=== PATIENT | female | born 1970 | race Caucasian/White ===

== ENCOUNTER 2021-04-14 11:49 | Emergency (ER) | payer OTHER ==
--- OUTSIDE RECORDS SUMMARY | 2021-04-14 11:52 | XMS REPORT | Continuity of Care Document ---
:1970 Author Organization [facility] t Address [address] [place] [address] Care Team Providers Name Role Phone Sammi Carrera Primary Care Physician ANDREA Attending Clinician Unavailable Sabine CLEMONS Attending Clinician Unavailable Ean Potter Attending Clinician Unavailable EVERTON, A Attending Clinician Unavailable Lab, Fam Pob I Attending Clinician Unavailable Ean Barriga Attending Clinician Physician, Primary or Family Admitting Clinician Unavailabl e Payers Payer Name Policy Type Policy Number Effective Date Expiration Date S ource [employer] CHOICE POS [id number] 2000 00:00:00 II CIG[employer] II [id number] 2019 00:00:00 Problems Condition Condition Condition Status Onset Resolution Last Treating Co mments Source Name Details Category Date Date Treatment Clinician Date Acute Acute Disease Active 2020-04 [facility] medial medial 1-11 [facility] meniscus meniscus 00:00: tear of tear of 00 right knee right knee Acute Acute Disease Active 2020-04 [facility] medial medial 1-11 [facility] meniscus meniscus 00:00: tear of tear of 00 left knee left knee Allergies, Adverse Reactions, Alerts Allergy Allergy Status Severity Reaction(s) Onset Inactive Treating Comm ents Source Name Type Date Date Clinician Penicill Allergy Active Itching 2013-04 [facility] ins to 0-13 Health substanc 00:00: e 00 NO KNOWN Drug Active [facility] ALLERGIE Class ity of [facility] Social History Social Habit Start Date Stop Date Quantity Comments Source Exposure to Not sure [facility] SARS-CoV-2 (event) Alcohol intake 2021-04-01 2021-04-01 Ex-drinker [facility] 00:00:00 00:00:00 (finding) Tobacco use and 2021-03-04 2021-03-04 Smokeless tobacco [facility] exposure 00:00:00 00:00:00 non-user Sex Assigned At [birth year] [facility] 00:00:[facility] 00:00:00 Smoking Status Start Date Stop Date Source Unknown if ever smoked [facility] Never smoked tobacco [facility] Medications Ordered Filled Start Stop Current Ordering Indication Dosage Frequency Signature Comments Components Source Medication Medication Date Date Medication? Clinician (SIG) Name Name traMADol 2020-04 Yes [id number] 50mg Q6H Take 1 [facility] (Ultram) 50 2-19 [id number] tablet (50 Health MG tablet 00:00: mg total) 00 by mouth every 6 (six) hours if needed for severe pain. traMADol 2020-04 Yes [id number] 50mg Q6H Take 1 [facility] (Ultram) 50 2-19 [id number] tablet (50 Health MG tablet 00:00: mg total) 00 by mouth every 6 (six) hours if needed for severe pain. Diclofenac 2020-04 Yes [id number] Apply [facility] Sodium 2-03 [id number] topically Health (Voltaren) 00:00: 4 (four) 1 % 00 times a external day if gel needed (pain). Do not apply more than 8 grams daily. Diclofenac 2020-04 Yes [id number] Apply [facility] Sodium 2-03 [id number] topically Health (Voltaren) 00:00: 4 (four) 1 % 00 times a external day if gel needed (pain). Do not apply more than 8 grams daily. meloxicam 2020-04- Yes [id number] 15mg QD Take 1 [facility] (Mobic) 15 05-27- [id number] tablet (15 Health MG tablet 00:00: 05:59 mg total) 00 :00 by mouth 1 (one) time each day. meloxicam 2020-04- Yes [id number] 15mg QD Take 1 [facility] (Mobic) 15 05-27- [id number] tablet (15 Health MG tablet 00:00: 05:59 mg total) 00 :00 by mouth 1 (one) time each day. Diclofenac 2020-04 Yes [id number] 1g Q.5D Apply 1 g [facility] Sodium 1.5 1-16 [id number] topically He alth % solution 00:00: 2 (two) 00 times a day. Diclofenac 2020-04 Yes [id number] 1g Q.5D Apply 1 g [facility] Sodium 1.5 1-16 [id number] topically He alth % solution 00:00: 2 (two) 00 times a day. Diclofenac 2020-04 Yes [id number] 1g Q.5D Apply 1 g [facility] Sodium 1.5 1-16 [id number] topically He alth % solution 00:00: 2 (two) 00 times a day. Diclofenac 2020-04 Yes [id number] 1g Q.5D Apply 1 g [facility] Sodium 1.5 1-16 [id number] topically He alth % solution 00:00: 2 (two) 00 times a day. Diclofenac 2020-04 Yes [id number] 1g Q.5D Apply 1 g UT Sodium 1.5 1-16 [id number] topically He alth % solution 00:00: 2 (two) 00 times a day. Diclofenac 2020-04 Yes [id number] 1g Q.5D Apply 1 g UT Sodium 1.5 1-16 [id number] topically He alth % solution 00:00: 2 (two) 00 times a day. omeprazole 2020-04 Yes 40mg Take 40 mg U T (PriLOSEC) 1-11 by mouth. Heal th [address] 16:08: capsule 00 omeprazole 2020-04 Yes 40mg Take 40 mg U T (PriLOSEC) 1-11 by mouth. Heal th [address] 16:08: capsule 00 omeprazole 2020-04 Yes 40mg Take 40 mg U T (PriLOSEC) 1-11 by mouth. Heal th [address] 16:08: capsule 00 omeprazole 2020-04 Yes 40mg Take 40 mg U T (PriLOSEC) 1-11 by mouth. Heal th [address] 16:08: capsule 00 omeprazole 2020-04 Yes 40mg Take 40 mg U T (PriLOSEC) 1-11 by mouth. Heal th [address] 16:08: capsule 00 omeprazole 2020-04 Yes 40mg Take 40 mg U T (PriLOSEC) 1-11 by mouth. Heal th [address] 16:08: capsule 00 omeprazole 2020-04 Yes 40mg Take 40 mg U T (PriLOSEC) 11 by mouth. Heal th [address] 16:08: capsule 00 Diclofenac 2020-04 Yes [id number] 2{appli Q.5D Apply 2 U T Sodium 05-04 cation} applicatio Heal (Pennsaid) 00:00: n 2 % 00 topically solution 2 (two) times a day. Use as directed on pack. meloxicam 2020-04- Yes [id number] 15mg QD Take 1 UT (Mobic) 15 05-04 [id number] tablet (15 Health MG tablet 00:00: 05:59 mg total) 00 :00 by mouth 1 (one) time each day. meloxicam 2020-04- Yes [id number] 15mg QD Take 1 UT (Mobic) 15 05-04 [id number] tablet (15 Health MG tablet 00:00: 05:59 mg total) 00 :00 by mouth 1 (one) time each day. meloxicam 2020-04- Yes [id number] 15mg QD Take 1 UT (Mobic) 15 05-04 [id number] tablet (15 Health MG tablet 00:00: 05:59 mg total) 00 :00 by mouth 1 (one) time each day. meloxicam 2020-04- Yes [id number] 15mg QD Take 1 UT (Mobic) 15 05-04 [id number] tablet (15 Health MG tablet 00:00: 05:59 mg total) 00 :00 by mouth 1 (one) time each day. meloxicam 2020-04- Yes [id number] 15mg QD Take 1 UT (Mobic) 15 05-04 [id number] tablet (15 Health MG tablet 00:00: 05:59 mg total) 00 :00 by mouth 1 (one) time each day. Diclofenac 2020-04- No [id number] 2{appli Q.5D Apply 2 UT Sodium 05-0415 cation} applicatio [facility] (Pennsaid) 00:00: 00:00 n 2 % 00 :00 topically solution 2 (two) times a day. Use as directed on pack. telmisartan 2020-04 Yes UT (MIcarDIS) 0-08 Health 20 MG 00:00: tablet 00 telmisartan 2020-04 Yes UT (MIcarDIS) 0-08 Health 20 MG 00:00: tablet 00 telmisartan 2020-04 Yes UT (MIcarDIS) 0-08 Health 20 MG 00:00: tablet 00 telmisartan 2020-04 Yes UT (MIcarDIS) 0-08 Health 20 MG 00:00: tablet 00 telmisartan 2020-04 Yes UT (MIcarDIS) 0-08 Health 20 MG 00:00: tablet 00 telmisartan 2020-04 Yes UT (MIcarDIS) 0-08 Health 20 MG 00:00: tablet 00 telmisartan 2020-04 Yes UT (MIcarDIS) 0-08 Health 20 MG 00:00: tablet 00 [place] 0 Yes UT 0.15-0.02/0 9-04 Health .01 MG 00:00: (11/09) 00 tablet Viorele 2020-0 Yes UT 0.15-0.02/0 9-04 Health .01 MG 00:00: (11/09) 00 tablet Viorele 2020-0 Yes UT 0.15-0.02/0 9-04 Health .01 MG 00:00: (11/09) 00 tablet Viorele 2020-0 Yes UT 0.15-0.02/0 9-04 Health .01 MG 00:00: (11/09) 00 tablet Viorele 2020-0 Yes UT 0.15-0.02/0 9-04 Health .01 MG 00:00: (11/09) 00 tablet Viorele 2020-0 Yes UT 0.15-0.02/0 9-04 Health .01 MG 00:00: (11/09) 00 tablet Viorele 2020-0 Yes UT 0.15-0.02/0 9-04 Health .01 MG 00:00: (11/09) 00 tablet Procedures Procedure Date / Time Performed Performing Clinician Sourc e [place] ARTHROCENTESIS ASPIR&/INJ 2021-04-02 18:47:29 Yumiko Marmolejo [facility] MAJOR JT/DELICIA W/US Encounters Start End Encounter Admission Attending Care Care Encounter Source Date/Time Date/Time Type Type Clinicians Facility Department ID 2021-04-06 Outpatient YUMIKO MARMOLEJO [facility] [id number] [facility] 12:03:15 Health 2021-03-10 Outpatient YUMIKO MARMOLEJO [facility] [id number] UT 11:26:04 Health 2021-04-02 2021-04-02 EXT M[facility] OP Yumiko Marmolejo EXT MSRDP [id number] ID 00:00:00 00:00:00 LOCATION [id number] H ealth [id number] 2021-03-31 2021-03-31 Refill SabineRossana [facility] [id number] ID 00:00:00 [facility]00[id number] [facility] MEDICAL [id number] [address] 8 [id number] 2021-03-09 2021-03-09 Telephone SabineRossana [facility] [id number] ID 00:00:00 00:00:00 [facility] [id number] Health MEDICAL [id number] [address] 4 [id number] 2021-03-08 2021-03-08 EXT MHH OP Yumiko Marmolejo EXT [facility] [id number] ID 00:00:00 00:00:00 LOCATION [id number] H ealth [id number] 2021-03-08 2021-03-08 EXT MHH OP Yumiko Marmolejo EXT MSRDP [id number] ID 00:00:00 00:00:00 LOCATION [id number] H ealth [id number] 2021-03-05 2021-03-05 Refill Yumiko Marmolejo [facility] [id number] UT 00:00:00 00:00:[address] ADEL [id number] [facility] MEDICAL [id number] PLA[address] 3 [id number] 2021-03-04 2021-03-04 Office Yumiko Marmolejo [facility] [id number] ID 15:04:42 16:57:53 Visit ADEL [id number] [facility] MEDICAL [id number] PLAZA 8 [id number] 2020-09-14 2020-09-14 Outpatient MARYANA Potter, [facility] [id number] [facility] 12:00:00 12:00:00 Analia [id number] [facility] 2020-02-27 2020-02-27 Outpatient R EVERTON [facility] [id number] Univers 09:40:00 09:40:00 IMAN hoyt of [facility] 2020-02-27 2020-02-27 Laboratory Lab, [facility] [id number] 09:18:22 09:38:22 Only Fam Pob I Health [id number] [place] [id number] Professio [id number] [place] [address] [address] 2020-02-27 2020-02-27 Laboratory Lab, [facility] Fam Pob I [facility] 1.2. [id number] [facility] 09:18:22 09:38:22 Only Iman Greenberg A Health [id number] ity of [place] [id number] [place] as Professio [phone] [address] Results This patient has no known results.
--- NOTE | 2021-04-14 13:14 | RAD REPORT ---
EXAM DESCRIPTION: RAD - Knee Right 3 View - 04/14/2021 1:09 pm CLINICAL HISTORY: PAIN COMPARISON: No comparisons FINDINGS: No acute fracture. No malalignment. Patellofemoral compartment spurring. IMPRESSION: No acute osseous abnormality involving the right knee.
--- NOTE | 2021-04-14 15:29 | RAD REPORT ---
EXAM DESCRIPTION: US - Extremity Nonvascular Complete - 04/14/2021 3:14 pm CLINICAL HISTORY: PAIN COMPARISON: No comparisons FINDINGS: 5.2 cm by 1.7 cm popliteal fossa cystic collection with debris present. No vascular flow i s present within the collection. IMPRESSION: 5 cm fluid collection in the popliteal fossa consistent with a Herring's cyst.
--- NOTE | 2021-04-14 19:02 | RAD REPORT ---
EXAM DESCRIPTION: MRI - Knee Right Wo Cont - 04/14/2021 6:34 pm CLINICAL HISTORY: knee pain Pain and swelling COMPARISON: No comparisons FINDINGS: Full-thickness tear of the root of the medial meniscus. The lateral meniscus is intact. The ACL and PCL are intact. The collateral ligaments are intact. Static patellar alignment is normal. Patellar retinacula are intact. Patellar and quadriceps tendons are normal. No fracture or significant bone bruise. Mild subchondral edema in the medial tibial plateau. There is also mild subchondral edema at the patella. Herring's cyst is present measuring 3 cm. IMPRESSION: Full-thickness tear of the posterior horn of the medial meniscus.
--- NOTE | 2021-04-14 19:23 | EDPHYS ---
Physician Documentation [facility] Name: Bhumika Reddy Age: 50 yrs Sex: Female : 1970 Arrival Date: 04/14/2021 Time: 11:52 Bed 19 Private MD: ED Physician Nate Whalen HPI: 04/15 07:54 This 50 yrs old Female presents to ER via Wheelchair with complaints of Knee Pain. kdr 07:54 The patient presents with decreased range of motion, an injury, pain, that is acute. kdr The complaints affect the posterior aspect of right knee. Context: The problem was sustained on a street or driveway, resulted from a mis-step, Patient stepped off a curb and had immediate pain after hearing a loud pop in her knee, the patient is not able to bear weight, Patient is able to ambulate with crutches. Onset: The symptoms/episode began/occurred yesterday. Modifying factors: The symptoms are alleviated by Her pain is very positional if she is in the right position while laying down, the pain is much improved if not resolved. Associated signs and symptoms: The patient has no apparent associated signs or symptoms. Treatment prior to arrival includes: elevation of the extremity. Severity of symptoms: At their worst the symptoms were moderate, incapacitating, in the emergency department the symptoms are unchanged. Unable to obtain HPI due to Patient has chronic bilateral knee pain and recently had a Herring's cyst drained on the knee. The patient has not experienced similar symptoms in the past. The patient has been recently seen by a physician: an orthopedic surgeon. Patient states that yesterday she stepped off a curb and heard a loud pop in her right knee and had immediate pain. Pain was posterior in the popliteal space. She had recently had a Herring's cyst drained with a steroid injection. This pain is not as bad as the Herring's cyst pain that she had prior to the drainage however it is significant and limits her ability to ambulate. 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 Historical: - Allergies: 04/14 12:13 PENICILLINS; iw 12:13 Aspirin; iw 12:13 Latex, Natural Rubber; iw - Home Meds: 12:13 telmisartan 20 mg oral tab 1 tab once daily [Active]; omeprazole 20 mg Oral cpDR 2 caps iw once daily [Active]; meloxicam 15 mg oral TbDi 1 tab once daily [Active]; - PSHx: 12:13 left knee; iw - Immunization history:: Client reports having NOT received the Covid vaccine. - Social history:: Smoking status: Patient denies any tobacco usage or history of. ROS: 04/15 07:54 Constitutional: Negative for fever, chills, and weight loss, Eyes: Negative for injury, kdr pain, redness, and discharge, Neck: Negative for injury, pain, and swelling, Cardiovascular: Negative for chest pain, palpitations, and edema, Respiratory: Negative for shortness of breath, cough, wheezing, and pleuritic chest pain, Abdomen/GI: Negative for abdominal pain, nausea, vomiting, diarrhea, and constipation, Back: Negative for injury and pain, Skin: Negative for injury, rash, and discoloration, Neuro: Negative for headache, weakness, numbness, tingling, and seizure activity. Psych: Negative for depression, anxiety, suicide ideation, homicidal ideation, and hallucinations, Allergy/Immunology: Negative for hives, rash, and allergies, Endocrine: Negative for neck swelling, polydipsia, polyuria, polyphagia, and marked weight changes, Hematologic/Lymphatic: Negative for swollen nodes, abnormal bleeding, and unusual bruising. MS/extremity: Positive for injury or acute deformity, Negative for ecchymosis, erythema, paresthesias, warmth. Exam: 07:54 Constitutional: This is a well developed, well nourished patient who is awake, alert, kdr and in no acute distress. Head/Face: Normocephalic, atraumatic. Eyes: Pupils equal round and reactive to light, extra-ocular motions intact. Lids and lashes normal. Conjunctiva and sclera are non-icteric and not injected. Cornea within normal limits. Periorbital areas with no swelling, redness, or edema. Neck: Trachea midline, no thyromegaly or masses palpated, and no cervical lymphadenopathy. Supple, full range of motion without nuchal rigidity, or vertebral point tenderness. No Meningismus. Chest/axilla: Normal chest wall appearance and motion. Nontender with no deformity. No lesions are appreciated. Cardiovascular: Regular rate and rhythm with a normal S1 and S2. No gallops, murmurs, or rubs. Normal PMI, no JVD. No pulse deficits. Respiratory: Lungs have equal breath sounds bilaterally, clear to auscultation and percussion. No rales, rhonchi or wheezes noted. No increased work of breathing, no retractions or nasal flaring. Abdomen/GI: Soft, non-tender, with normal bowel sounds. No distension or tympany. No guarding or rebound. No evidence of tenderness throughout. Back: No spinal tenderness. No costovertebral tenderness. Full range of motion. Skin: Warm, dry with normal turgor. Normal color with no rashes, no lesions, and no evidence of cellulitis. Neuro: Awake and alert, GCS 15, oriented to person, place, time, and situation. Cranial nerves II-XII grossly intact. Motor strength 5/5 in all extremities. Sensory grossly intact. Cerebellar exam normal. Normal gait. Psych: Awake, alert, with orientation to person, place and time. Behavior, mood, and affect are within normal limits. 07:54 Musculoskeletal/extremity: Extremities: grossly normal except: noted in the posterior aspect of right knee: decreased ROM, pain, Pain is exacerbated with twisting of the foot. She does have some limited range of motion with minimal discomfort of the knee. She is able to flex the knee and extended with mild discomfort. Rotational stress on the knee does result in increased pain, Circulation is intact in all extremities. Sensation intact. Compartment Syndrome exam of affected extremity: is normal. Joints: All joints are normal except the right knee displays limited range of motion, painful range of motion, swelling, tenderness. Vital Signs: 04/14 12:11 Resp 16; Temp 98.2; Pulse Ox 97.5% ; Weight 102.06 kg; Height 5 ft. 5 in. (165.10 cm); iw Pain 10/10; 12:11 Body Mass Index 37.44 (102.06 kg, 165.10 cm) iw MDM: 19:22 Patient medically screened. kdr 04/15 07:54 Data reviewed: vital signs, nurses notes, radiologic studies. Counseling: I had a kdr detailed discussion with the patient and/or guardian regarding: the historical points, exam findings, and any diagnostic results supporting the discharge/admit diagnosis, radiology results, the need for outpatient follow up. ED course: Patient was stable in the emergency department. She was nontoxic-appearing at all times in the right distal extremity was neurologically and vascularly intact. I reviewed the findings with her and the need for further evaluation with orthopedics. We did not have a prior MR study so the extent to which the current findings were different than her pre-existing condition prior to stepping off the curb is unknown. She will follow up with her orthopedics in the next several days. Patient was otherwise nontoxic appearing and there was no apparent threat to life or limb with her current illness. Patient was somewhat frustrated with the lack of definitive answers in terms of her current condition but otherwise was happy with the care provided and the plan for discharge and follow-up. 04/14 12:38 Order name: Knee Right 3 View XRAY; Complete Time: 14:32 kdr 04/14 14:46 Order name: Knee Right Wo Cont; Complete Time: 19:21 EDMS 04/14 14:52 Order name: Extremity Nonvascular Complete; Complete Time: 17:05 EDMS 04/14 19:41 Order name: Knee Immobilizer; Complete Time: 19:52 lp1 04/14 19:41 Order name: Mir Wrap; Complete Time: 19:52 lp1 Administered Medications: 04/14 19:52 Drug: [place] (HYDROcodone-acetaminophen) 10 mg-325 mg 1 tabs Route: PO; kd3 Disposition Summary: 04/14/21 19:22 Discharge Ordered Location: Home kdr Problem: new kdr Symptoms: have improved kdr Condition: Stable kdr Diagnosis - Pain in right knee kdr - Other tear of medial meniscus, current injury, right knee, subsequent encounter kdr Followup: kdr - With: Private Physician - When: 2 - 3 days - Reason: If symptoms return, Further diagnostic work-up, Recheck today's complaints, Continuance of care, Re-evaluation by your physician Discharge Instructions: - Discharge Summary Sheet kdr - Joint Pain kdr - Meniscus Tear kdr Forms: - Medication Reconciliation Form kdr - Thank You Letter kdr - Prescription Opioid Use kdr Prescriptions: - Tylenol-Codeine #3 300 mg-30 mg Oral - take 1 tablet by ORAL route every 4-6 hours As needed; 16 tablet; Refills: 0, kdr Product Selection Permitted - Ultracet 37.5-325 mg Oral Tablet - take 1 tablet by ORAL route every 6 hours - for up to 5 days; do not exceed 8 jmm tablets per day.; 12 tablet; Refills: 0, Product Selection Permitted - orphenadrine citrate 100 mg Oral Tablet Sustained Release - take 1 tablet by ORAL route 2 times per day As needed; 20 tablet; Refills: 0, jmm Product Selection Permitted Signatures: Dispatcher [employer] EDMS Nate Whalen MD MD kdr Williams, Irene, RN RN iw Izabella Beltran RN RN lp1 Eloisa King RN RN kd3 Corrections: (The following items were deleted from the chart) 14:52 14:45 Extrmty Nonvasular Limited+US.RAD.BRZ ordered. EDMS EDMS
--- NOTE | 2021-04-14 19:23 | ER ---
Nurse's Notes [facility] Name: Bhumika Reddy Age: 50 yrs Sex: Female : 1970 Arrival Date: 04/14/2021 Time: 11:52 Bed 19 Private MD: Diagnosis: Pain in right knee;Other tear of medial meniscus, current injury, right knee, subsequent encounter Presentation: 04/14 12:11 Chief complaint: Patient states: stepped down off a step yesterday and her right knee iw popped , has hx of bakers cyst and had it drained recently , is now having a lot of pain behind her knee and when she tries to put weight on it , cannot straighten right leg. Coronavirus screen: At this time, the client does not indicate any symptoms associated with coronavirus-19. Ebola Screen: Patient negative for fever greater than or equal to 101.5 degrees Fahrenheit, and additional compatible Ebola Virus Disease symptoms Patient denies exposure to infectious person. Patient denies travel to an Ebola-affected area in the 21 days before illness onset. No symptoms or risks identified at this time. Initial Sepsis Screen: Does the patient meet any 2 criteria? No. Patient's initial sepsis screen is negative. Does the patient have a suspected source of infection? No. Patient's initial sepsis screen is negative. Risk Assessment: Do you want to hurt yourself or someone else? Patient reports no desire to harm self or others. Onset of symptoms was April 13, 2021. 12:11 Method Of Arrival: Wheelchair iw 12:11 Acuity: JR 3 iw Triage Assessment: 19:53 General: Appears uncomfortable, Behavior is calm, cooperative, appropriate for age. kd3 Pain: Complains of pain in right leg. Historical: - Allergies: 12:13 PENICILLINS; iw 12:13 Aspirin; iw 12:13 Latex, Natural Rubber; iw - Home Meds: 12:13 telmisartan 20 mg oral tab 1 tab once daily [Active]; omeprazole 20 mg Oral cpDR 2 caps iw once daily [Active]; meloxicam 15 mg oral TbDi 1 tab once daily [Active]; - PSHx: 12:13 left knee; iw - Immunization history:: Client reports having NOT received the Covid vaccine. - Social history:: Smoking status: Patient denies any tobacco usage or history of. Screenin:52 Abuse screen: Denies threats or abuse. Denies injuries from another. Nutritional kd3 screening: No deficits noted. Tuberculosis screening: No symptoms or risk factors identified. Fall Risk None identified. Assessment: 19:42 Reassessment: Verbal order by Dr. Whalen for Denville 10-325mg PO x1, knee immobilizer lp1 and SNEHA wrap. Vital Signs: 12:11 Resp 16; Temp 98.2; Pulse Ox 97.5% ; Weight 102.06 kg; Height 5 ft. 5 in. (165.10 cm); iw Pain 10/10; 12:11 Body Mass Index 37.44 (102.06 kg, 165.10 cm) iw ED Course: 11:52 Patient arrived in ED. ds1 12:03 Lyssa Leon, RN is Primary Nurse. 5 12:13 Triage completed. iw 12:14 Arm band placed on. iw 12:27 Nate Whalen MD is Attending Physician. kdr 13:09 Knee Right 3 View XRAY In Process Unspecified. EDMS 15:14 Extremity Nonvascular Complete In Process Unspecified. EDMS 18:27 Knee Right Wo Cont In Process Unspecified. EDMS 19:52 Patient has correct armband on for positive identification. Call light in reach. kd3 19:52 No provider procedures requiring assistance completed. Patient did not have IV access kd3 during this emergency room visit. Administered Medications: 19:52 Drug: Denville (HYDROcodone-acetaminophen) 10 mg-325 mg 1 tabs Route: PO; kd3 Outcome: 19:22 Discharge ordered by . kdr 20:07 Discharged to home via wheelchair. kd3 20:07 Condition: stable 20:07 Discharge instructions given to patient, Instructed on discharge instructions, follow up and referral plans. Demonstrated understanding of instructions, follow-up care, medications, Prescriptions given X 2. 20:08 Patient left the ED. kd3 Signatures: Dispatcher [employer] EDMS Nate Whalen MD MD [facility] Britta Iraheta ds1 Stormy Sam RN RN iw Izabella Beltran RN RN lp1 Lyssa Leon RN RN 5 Eloisa King RN RN kd3
[2021-04-14] MEDS ORDERED: HYDROCODONE/APAP 10/325 TAB ONE (19:39)
[2021-04-14 20:36] VITALS: TEMP 98.2
== END 2021-04-14 20:08 | disposition home or self-care (01) ==
LOC: ER 11:49
DX: S83.241D Other tear of medial meniscus, current injury, right knee, subsequent encounter (principal); Z88.0 Allergy status to penicillin; Z88.6 Allergy status to analgesic agent; Z91.040 Latex allergy status; Z91.048 Other nonmedicinal substance allergy status
CPT/HCPCS: 76881; 99283